=== PATIENT | female | born 1980 | race Caucasian/White ===

== ENCOUNTER 2016-06-09 05:42 | Inpatient (IN) | payer BC ==
[2016-06-06 11:32] LABS: BASOPHILS % (AUTO) 0.6 % (0.0-2.0); EOSINOPHILS # (AUTO) 0.1 K/uL (0.0-0.4); EOSINOPHILS % (AUTO) 2.2 % (0.0-4.0); HEMATOCRIT 41.9 % (36-48); HEMOGLOBIN 13.8 g/dL (12.0-16.0); LYMPHOCYTES # (AUTO) 1.4 K/uL (1.0-5.5); MEAN CORPUSCULAR HEMOGLOBIN 27 pg (27-31); MEAN CORPUSCULAR HGB CONC 33 % (32-36); MEAN CORPUSCULAR VOLUME 81 fL (79.0-98.0); MONOCYTES # (AUTO) 0.4 K/uL (0.0-1.0); MONOCYTES % (AUTO) 6.9 % (1.7-9.3); NEUTROPHILS % (AUTO) 67.3 % (40.0-70.0); PLATELET COUNT (AUTO) 303 K/uL (130-430); RED BLOOD CELL COUNT(AUTO) 5.15 MIL/uL (4.2-6.2); WHITE BLOOD COUNT (AUTO) 5.9 K/uL (4.8-10.8)
[2016-06-06 11:33] LABS: BILIRUBIN,URINE NEGATIVE (NEGATIVE); BLOOD, URINE NEGATIVE (NEGATIVE); CLARITY/URINE CLEAR (CLEAR); COLOR,URINE YELLOW (YELLOW); GLUCOSE,URINE NEGATIVE (NEGATIVE); KETONES,URINE NEGATIVE (NEGATIVE); LEUKOCYTE ESTERASE ,URINE NEGATIVE (NEGATIVE); NITRITE, URINE NEGATIVE (NEGATIVE); PROTEIN URINE NEGATIVE (NEGATIVE); UROBILINOGEN,URINE 0.2 (0.2-1.0)
[2016-06-06 11:54] LABS: CALCIUM 8.7 mg/dL (8.4-11.0); CREATININE 0.6 mg/dL (0.55-1.30); POTASSIUM 3.8 mmol/L (3.5-5.1)
[~2016-06-09] VITALS: Ht 162.6 cm; Wt 64.0 kg
[2016-06-09] MEDS ORDERED: CEFAZOLIN 1 GM IVPB PREMIX 50 ML IV ONE (07:00)
[2016-06-09] MEDS ORDERED: fentaNYL CITRATE 250 MCG/5 ML AMP IV ONE (07:50)
[2016-06-09] MEDS ORDERED: ONDANSETRON HCL 4 MG/2 ML VIAL IVP ONE (07:50)
[2016-06-09] MEDS ORDERED: ROCURONIUM BROMIDE 10 MG/ML (ZEMURON) IV ONE (07:50)
[2016-06-09] MEDS ORDERED: PROPOFOL 200MG/ 20ML VIAL (DIPRIVAN) IV ONE (07:50)
[2016-06-09] MEDS ORDERED: LR 1,000 ML IV.SOLN IV ONE (07:50)
[2016-06-09] MEDS ORDERED: MIDAZOLAM HCL 5 MG/5 ML VIAL IVP ONE (07:50)
[2016-06-09] MEDS ORDERED: fentaNYL CITRATE/PF 100 MCG/2 ML AMP IVP ONE (07:50)
[2016-06-09] MEDS ORDERED: SUGAMMADEX SODIUM 200 MG/2 ML VIAL IV ONE (07:50)
[2016-06-09] MEDS ORDERED: NS 100 ML BAG IV ONE (07:50)
[2016-06-09] MEDS ORDERED: KETOROLAC TROMETHAMINE 30 MG VIAL IVP ONE (07:50)
[2016-06-09] MEDS ORDERED: VASOPRESSIN 20 UNITS/ML VIAL IV ONE (07:50)
[2016-06-09] MEDS ORDERED: NS IRRIG SOLN 1000 ML IR ONE (07:50)
[2016-06-09] MEDS ORDERED: SEVOFLURANE 15 MIN GAS INH ONE (07:50)
[2016-06-09] MEDS ORDERED: LR 1,000 ML IV SCH (08:52)
[2016-06-09] MEDS ORDERED: MORPHINE 2 MG/ML INJ. SYRINGE IVP PRN ×3 (09:00)
[2016-06-09] MEDS ORDERED: METOCLOPRAMIDE HCL 10 MG/2 ML VIAL IVP PRN (09:00)
[2016-06-09] MEDS ORDERED: OXYCODONE/ACETAMINOPHEN 5-325 TABLET PO PRN (09:45)
[2016-06-09] MEDS ORDERED: ONDANSETRON HCL 4 MG/2 ML VIAL IVP PRN (09:45)
[2016-06-09] MEDS ORDERED: MORPHINE 4 MG/ML INJ. SYRINGE ONE (09:58)
--- NOTE | 2016-06-09 10:30 | NUR ---
ADMIT NOTE RECEIVED PATIENT FROM [facility] POST [facility]. RECEIVED REPORT FROM [facility]. PATIENT ADMITTED TO [facility] WITH DIAGNOSIS OF SYMPTOMATIC FIBROIDS, UNDER THE CARE OF DR. GUZMAN. PATIENT ORIENTED TO ROOM, SAFETY PRECAUTIONS, AND NURSES FOR THE DAY. CALL LIGHT IN REACH, BED IN LOWEST POSITION, AND WILL CONTINUE TO MONITOR.
[2016-06-09 11:05] VITALS: BP 110/68; PULSE 66; RESP 18; TEMP 98.1; O2SAT 99
--- NOTE | 2016-06-09 12:00 | NUR ---
NOTE: Patient is resting comfortably in bed. no s/s of distress or sob. patient is alert and oriented, able to express needs, and ask for assistance. call light in reach, bed in lowest position, and will continue to monitor.
[2016-06-09] MEDS: OXYCODONE/ACETAMINOPHEN 5-325 TABLET PO PRN ×2 (13:13→20:02)
[2016-06-09] MEDS: LR 1,000 ML IV SCH ×2 (15:13→17:33)
[2016-06-09 15:30] VITALS: BP 93/54; PULSE 86; RESP 19; TEMP 96.9; O2SAT 100
--- NOTE | 2016-06-09 16:25 | NUR ---
NOTE: PATIENT IS RESTING COMFORTABLY IN BED. NO S.S OF DISTRESS OR SOB. PATIENT IS ALERT AND ORIENTED, ABLE TO EXPRESS NEEDS, AND ASK FOR ASSISTANCE. CALL LIGHT IN REACH, BED IN LOWEST POSITION, AND WILL CONTINUE TO MONITOR.
--- NOTE | 2016-06-09 16:52 | NUR ---
assumed care pt in bed, denies pain awake alert with ivf infusing well l forearm. resp easy unlabored. lower abd dressing dry and intact. cruzito pad in place. no bleeding noted. sanchez intact with small amount walt output.
[2016-06-09] MEDS: IBUPROFEN 800 MG TABLET PO PRN (17:37)
--- NOTE | 2016-06-09 17:42 | NUR ---
rounds motrin was given for pain. call light within reached and instructed to call if pain not relieved.
--- NOTE | 2016-06-09 19:00 | NUR ---
closing notes endorsed to night nurse re care. no c\o pain. no sob noted. no bleeding noted. needs attended.
[2016-06-09 20:00] VITALS: BP 97/52; PULSE 72; RESP 18; TEMP 97.8; O2SAT 95
--- NOTE | 2016-06-09 20:00 | NUR ---
Initial Note Late entry due to patient care. Patient c/o sharp pain in the abdomen. Administered pain medication as ordered, see eMAR. Patient tolerated well. Patient abdominal incision covered with dressing, CDI. No bleeding or discharge noted on cruzito pad. Patient has a sanchez draining to gravity. Iv site patent with no signs or symptoms of infiltration noted at this time. Educated patient on using incentive spirometer, patient was able to demonstrate proper use. Educated patient on using 10 times per hour while awake. Call light in hand, educated patient on using call light for assistance, verbalized understanding. Fall and safety precautions in place. Will continue to monitor.
[2016-06-09] MEDS ORDERED: SENNOSIDES/DOCUSATE SODIUM 1 TAB TABLET(SENOKOT-S) PO PRN ×2 (21:00)
[2016-06-09] MEDS ORDERED: TEMAZEPAM 15 MG CAPSULE PO PRN (21:00)
--- NOTE | 2016-06-09 22:39 | NUR ---
RN ROUNDS Patient in bed at this time resting with eyes closed. respirations even and unlabored. No acute distress noted at this time. Patient in no apparent pain or discomfort at this time. Call light in hand. Fall and safety precautions in place. Will continue to monitor.
[2016-06-10] VITALS: BP 100/50; PULSE 100; RESP 18; TEMP 98.3; O2SAT 99
--- NOTE | 2016-06-10 00:23 | NUR ---
RN ROUNDS Patient in bed at this time resting, respirations even and unlabored. No acute distress noted at this time. Patient states pain is tolerable at this time. Educated patient on pain, and pain management. Patient stated she would call me if she felt like she needed pain medication. Call light in hand. Fall and safety precautions in place. Will continue to monitor.
[2016-06-10] MEDS: LR 1,000 ML IV SCH ×2 (02:16→11:07)
--- NOTE | 2016-06-10 02:17 | NUR ---
RN ROUNDS Patient in bed at this time resting, respirations even and unlabored. No acute distress noted at this time. Patient in no apparent pain or discomfort, no facial grimacing noted. Call light in hand. Fall and safety precautions in place. Will continue to monitor.
--- NOTE | 2016-06-10 04:32 | NUR ---
RN ROUNDS Patient in bed at this time resting, respirations even and unlabored. No acute distress noted at this time. Patient denies any pain or discomfort at this time. Patient has good urine output. Continues to tolerate IVF well. Call light in hand. Fall and safety precautions in place. Will continue to monitor.
[2016-06-10 04:49] VITALS: BP 93/52; PULSE 80; RESP 17; TEMP 97.8; O2SAT 92
--- NOTE | 2016-06-10 07:01 | NUR ---
Closing Note Patient in bed at this time resting. Respirations even and unlabored. No acute distress noted at this time. Patient denies any pain or discomfort at this time. Discontinued sanchez catheter, catheter tip intact. Fluids discontinued as ordered per MD. All due meds given, all needs met. call light in hand. Fall and safety precautions in place. Will endorse to day shift nurse.
[2016-06-10 07:26] LABS: HEMOGLOBIN 8.1 g/dL (12.0-16.0)
--- NOTE | 2016-06-10 08:00 | NUR ---
initial notes rec patient awake alert and eating clear liquid breakfast. ivl on the l forearm intact. no infiltration noted. lower abdominal dressing dry and intact. no bleeding noted. voiding freely with min assists to the br and jonathan well. bed in low position and side rails up and locked. call light within reached.
[2016-06-10] MEDS: SIMETHICONE 80 MG TAB.CHEW PO PRN ×2 (08:40→14:08)
[2016-06-10] MEDS: IBUPROFEN 800 MG TABLET PO PRN ×2 (08:40→14:08)
--- NOTE | 2016-06-10 10:00 | NUR ---
rounds ambulating on the hallway with the and jonathan well. no acute distress noted.
--- NOTE | 2016-06-10 12:00 | NUR ---
rounds explained to patient that dr linton will be here by 2 pm to d/c patient. denies pain , ambulates at intervals in the room and jonathan well. no bleeding noted.
[2016-06-10 12:29] VITALS: BP 92/56; PULSE 65; RESP 16; TEMP 98.2; O2SAT 100
[2016-06-10 14:59] VITALS: BP 102/70; PULSE 65; RESP 16; TEMP 98.2; O2SAT 100
--- NOTE | 2016-06-10 15:10 | NUR ---
closing notes was sent home after seen by dr linton. no sob noted. id band was removed, appt with dr linton was arranged as per patient. stable. no sob noted.
== END 2016-06-10 15:10 | disposition home or self-care (01) | DRG 743 ==
LOC: SMU 05:42
PROVIDERS: ADMIT Obstetrics & Gynecology; ATTEND Obstetrics & Gynecology
PROC: 0UB90ZZ Excision of Uterus, Open Approach (ICD-10-PCS; principal; 2016-06-09 07:30)
DX: D25.9 Leiomyoma of uterus, unspecified (principal); Z82.49 Family history of ischemic heart disease and other diseases of the circulatory system
CPT/HCPCS: 36415; 80048; 81003; 84703; 85018-TC; 85025; 86886; 86900; 86901; 87081; 88305; C9399; J0690; J1885; J2250; J2270; J2405; J2704; J3010; J3490; J7120

== ENCOUNTER 2018-06-07 06:02 | Day surgery (SDC) | payer BC ==
[2018-06-04 11:12] LABS: BASOPHILS % (AUTO) 0.5 % (0.0-2.0); EOSINOPHILS # (AUTO) 0.2 K/uL (0.0-0.4); EOSINOPHILS % (AUTO) 2.4 % (0.0-4.0); HEMOGLOBIN 12.5 g/dL (12.0-16.0); LYMPHOCYTES # (AUTO) 2.7 K/uL (1.0-5.5); LYMPHOCYTES % (AUTO) 33.6 % (20.5-51.5); MEAN CORPUSCULAR HEMOGLOBIN 26 pg (27-31); MEAN CORPUSCULAR HGB CONC 32 % (32-36); MEAN CORPUSCULAR VOLUME 81 fL (79.0-98.0); MONOCYTES # (AUTO) 0.5 K/uL (0.0-1.0); NEUTROPHILS # (AUTO) 4.6 K/uL (1.8-7.7); NEUTROPHILS % (AUTO) 57.5 % (40.0-70.0); PLATELET COUNT (AUTO) 376 K/uL (130-430); RED BLOOD CELL COUNT(AUTO) 4.83 MIL/uL (4.2-6.2); RED CELL DISTRIBUTION WIDTH 12.6 % (9.0-15.0)
[2018-06-04 11:23] LABS: BILIRUBIN,URINE NEGATIVE (NEGATIVE); BLOOD, URINE 2+ (NEGATIVE); CLARITY/URINE CLEAR (CLEAR); COLOR,URINE YELLOW (YELLOW); GLUCOSE,URINE NEGATIVE (NEGATIVE); KETONES,URINE TRACE (NEGATIVE); LEUKOCYTE ESTERASE ,URINE NEGATIVE (NEGATIVE); NITRITE, URINE NEGATIVE (NEGATIVE); PH,URINE 5.5 (5.0-8.0); PROTEIN URINE NEGATIVE (NEGATIVE); UROBILINOGEN,URINE 0.2 (0.2-1.0)
[2018-06-04 11:30] LABS: CALCIUM 8.4 mg/dL (8.4-11.0); CREATININE 0.53 mg/dL (0.55-1.30); POTASSIUM 3.9 mmol/L (3.5-5.1)
[2018-06-04 11:47] LABS: BACTERIA,URINE FEW /HPF (None Seen); MUCUS,URINE 1+ /LPF (None Seen); WBC,URINE 0-3 /HPF (0-3)
[~2018-06-07] VITALS: Ht 162.6 cm; Wt 68.0 kg
[2018-06-07] MEDS ORDERED: NS IRRIG SOLN 1000 ML IR ONE (07:40)
[2018-06-07] MEDS ORDERED: SEVOFLURANE 15 MIN GAS INH ONE (07:40)
[2018-06-07] MEDS ORDERED: NS 1000 ML IV.SOLN IV ONE (07:40)
[2018-06-07] MEDS ORDERED: fentaNYL CITRATE/PF 100 MCG/2 ML AMP IVP ONE (07:40)
[2018-06-07] MEDS ORDERED: ONDANSETRON HCL 4 MG/2 ML VIAL IVP ONE (07:40)
[2018-06-07] MEDS ORDERED: MIDAZOLAM HCL 5 MG/5 ML VIAL IVP ONE (07:40)
[2018-06-07] MEDS ORDERED: LR 1,000 ML IV.SOLN IV ONE (07:40)
[2018-06-07] MEDS ORDERED: KETOROLAC TROMETHAMINE 30 MG VIAL IVP ONE (07:40)
[2018-06-07] MEDS ORDERED: KETOROLAC TROMETHAMINE 30 MG VIAL IVP PRN (08:30)
[2018-06-07] MEDS ORDERED: fentaNYL CITRATE/PF 100 MCG/2 ML AMP IVP PRN ×2 (08:30)
[2018-06-07] MEDS ORDERED: ONDANSETRON HCL 4 MG/2 ML VIAL IVP PRN ×2 (08:30→08:45)
[2018-06-07] MEDS ORDERED: IBUPROFEN 800 MG TABLET PO PRN (08:45)
[2018-06-07] MEDS ORDERED: OXYCODONE/ACETAMINOPHEN 5-325 TABLET PO PRN ×2 (08:45)
[2018-06-07 10:23] VITALS: BP_SYST 113
== END 2018-06-07 10:40 | disposition home or self-care (01) ==
LOC: SDS 06:02 → SMU 06:03 → SDS 10:40
PROVIDERS: ATTEND Obstetrics & Gynecology
DX: N84.0 Polyp of corpus uteri (principal); Z98.890 Other specified postprocedural states; Z82.49 Family history of ischemic heart disease and other diseases of the circulatory system; Z83.3 Family history of diabetes mellitus
CPT/HCPCS: 36415; 58558; 80048; 81000; 84703; 85025; 88305; C1819; J1885; J2250; J2405; J3010; J7030; J7120